=== PATIENT | female | born 1955 | race African-American/Black ===

== ENCOUNTER 2017-11-10 10:19 | Outpatient (CLI) | payer BC | END 2017-11-10 10:20 | disposition home or self-care (01) | LOC: BICMAMMO 10:19 | PROVIDERS: ATTEND Family Medicine | DX: Z12.31 Encounter for screening mammogram for malignant neoplasm of breast (principal); N63.20 Unspecified lump in the left breast, unspecified quadrant; N63.10 Unspecified lump in the right breast, unspecified quadrant | CPT/HCPCS: 77063; 77067 ==

== ENCOUNTER 2018-04-26 14:08 | Outpatient (CLI) | payer BC | END 2018-04-26 14:09 | disposition home or self-care (01) | LOC: BICMAMMO 14:08 | PROVIDERS: ATTEND Family Medicine | DX: N63.21 Unspecified lump in the left breast, upper outer quadrant (principal); R92.2 Inconclusive mammogram | CPT/HCPCS: G0279 ==

== ENCOUNTER 2020-04-01 09:57 | Day surgery (SDC) | payer BC ==
[~2020-04-01 09:57] MED LIST: Acetaminophen 500 MG TAB PO PRN; Vedolizumab 300 MG in Sodium Chloride 0.9% 250 ML 250 ML IVPB SCH
[2020-04-01] MEDS ORDERED: Sodium Chloride 0.9% 20 ML ONE (11:10)
[2020-04-01 12:00] VITALS: BP 116/73; TEMP 98.4
== END 2020-04-01 14:18 | disposition home or self-care (01) ==
LOC: ONC/OP 09:57
PROVIDERS: ATTEND Internal Medicine Gastroenterology
DX: K50.90 Crohn's disease, unspecified, without complications (principal); Z88.2 Allergy status to sulfonamides
CPT/HCPCS: 96413; J3380; J7050

== ENCOUNTER 2020-04-15 09:43 | Day surgery (SDC) | payer BC ==
[2020-04-15] MEDS ORDERED: Acetaminophen 500 MG TAB PO PRN ×2 (10:07→10:08)
[2020-04-15] MEDS ORDERED: Sodium Chloride 0.9% 20 ML ONE (10:09)
[2020-04-15] MEDS ORDERED: Vedolizumab 300 MG in Sodium Chloride 0.9% 250 ML 250 ML IVPB SCH (10:15)
[2020-04-15 11:50] VITALS: BP 120/76; TEMP 98.8
== END 2020-04-15 11:55 | disposition home or self-care (01) ==
LOC: ONC/OP 09:43
PROVIDERS: ATTEND Internal Medicine Gastroenterology
DX: K50.90 Crohn's disease, unspecified, without complications (principal); Z88.2 Allergy status to sulfonamides
CPT/HCPCS: 96413; J3380; J7050

== ENCOUNTER 2020-06-06 08:55 | Day surgery (SDC) | payer BC ==
[2020-06-06] MEDS ORDERED: Sodium Chloride 0.9% 20 ML ONE (09:00)
[2020-06-06 09:11] VITALS: BP 116/70; TEMP 98.8
== END 2020-06-06 12:27 | disposition home or self-care (01) ==
LOC: ONC/OP 08:55
PROVIDERS: ATTEND Internal Medicine Gastroenterology
DX: K50.90 Crohn's disease, unspecified, without complications (principal); Z88.2 Allergy status to sulfonamides
CPT/HCPCS: 96413

== ENCOUNTER 2020-07-31 08:45 | Day surgery (SDC) | payer BC ==
[~2020-07-31 08:45] MED LIST changes: +Sodium Chloride 0.9% 1,000 ML IV SCH
[2020-07-31] MEDS ORDERED: Sodium Chloride 0.9% 20 ML ONE (09:01)
[2020-07-31 09:16] VITALS: BP 120/67; TEMP 98.7
== END 2020-07-31 10:20 | disposition home or self-care (01) ==
LOC: ONC/OP 08:45
PROVIDERS: ATTEND Internal Medicine Gastroenterology
DX: K50.90 Crohn's disease, unspecified, without complications (principal); Z88.2 Allergy status to sulfonamides; Z91.011 Allergy to milk products
CPT/HCPCS: 96413

== ENCOUNTER 2020-09-25 12:38 | Day surgery (SDC) | payer BC ==
[2020-09-25] MEDS ORDERED: Sodium Chloride 0.9% 20 ML ONE (12:42)
[2020-09-25 13:03] VITALS: BP 129/71; TEMP 98.8
== END 2020-09-25 14:18 | disposition home or self-care (01) ==
LOC: ONC/OP 12:38
PROVIDERS: ATTEND Internal Medicine Gastroenterology
DX: K50.90 Crohn's disease, unspecified, without complications (principal); Z88.2 Allergy status to sulfonamides; Z91.011 Allergy to milk products
CPT/HCPCS: 36415; 80053; 83021; 83516; 84550; 85025; 85652; 86038; 86140; 86160; 86225; 86376; 96413

== ENCOUNTER 2020-09-26 13:01 | Outpatient (CLI) | payer BC ==
--- NOTE | 2020-09-26 14:28 | ULT ---
LEFT LOWER EXTREMITY VENOUS DUPLEX EXAM: 09/26/20 HISTORY: Left leg pain and swelling. Real time color Doppler evaluation of the left lower extremity was performed from groin to calf. This includes evaluation of the common femoral, superficial, profunda femoral, saphenous, popliteal, and posterior tibial veins. This shows patent deep venous system. There is normal compressibility and aug mentation. No evidence of DVT. IMPRESSION: No evidence of DVT of the left lower extremity. POS: [facility]
== END 2020-09-26 13:02 | disposition home or self-care (01) ==
LOC: BICULT 13:01
PROVIDERS: ATTEND Family Medicine
DX: M79.89 Other specified soft tissue disorders (principal)

== ENCOUNTER 2020-11-21 09:05 | Day surgery (SDC) | payer BC ==
[~2020-11-21 09:05] MED LIST changes: +Acetaminophen 500 MG TAB PO SCH
[2020-11-21 10:20] VITALS: BP 107/75; TEMP 98.6
== END 2020-11-21 13:52 | disposition home or self-care (01) ==
LOC: ONC/OP 09:05
PROVIDERS: ATTEND Internal Medicine Gastroenterology
DX: K50.90 Crohn's disease, unspecified, without complications (principal); Z88.2 Allergy status to sulfonamides; Z91.011 Allergy to milk products
CPT/HCPCS: 96413

== ENCOUNTER → 2021-01-27 | Day surgery (SDC) | payer BC ==
[~2021-01-27] MED LIST changes: +Sodium Chloride 0.9% 20 ML ONE
[2021-01-27 09:35] VITALS: BP 122/71; TEMP 98.6
== END ==
LOC: ONC/OP 08:16
PROVIDERS: ATTEND Internal Medicine Gastroenterology
DX: K50.90 Crohn's disease, unspecified, without complications (principal); Z88.2 Allergy status to sulfonamides; Z91.011 Allergy to milk products
CPT/HCPCS: 36415; 80053; 80061; 82306; 84443; 85025; 96413

== ENCOUNTER 2021-03-20 08:21 | Day surgery (SDC) | payer BC ==
[~2021-03-20 08:21] MED LIST changes: -Sodium Chloride 0.9% 20 ML ONE
[2021-03-20] MEDS ORDERED: Sodium Chloride 0.9% 20 ML ONE (08:56)
[2021-03-20 10:18] VITALS: BP 127/70; TEMP 98.8
== END 2021-03-20 10:19 | disposition home or self-care (01) ==
LOC: ONC/OP 08:21
PROVIDERS: ATTEND Internal Medicine Gastroenterology
DX: K50.90 Crohn's disease, unspecified, without complications (principal); Z88.2 Allergy status to sulfonamides; Z91.011 Allergy to milk products
CPT/HCPCS: 96413

== ENCOUNTER 2021-07-09 09:10 | Day surgery (SDC) | payer BC ==
[2021-07-09] MEDS ORDERED: Sodium Chloride 0.9% 20 ML ONE (09:16)
[2021-07-09 10:00] VITALS: BP 114/60; TEMP 98.5
== END 2021-07-09 11:09 | disposition home or self-care (01) ==
LOC: ONC/OP 09:10
PROVIDERS: ATTEND Internal Medicine Gastroenterology
DX: K50.90 Crohn's disease, unspecified, without complications (principal); Z88.2 Allergy status to sulfonamides; Z91.011 Allergy to milk products
CPT/HCPCS: 96413

== ENCOUNTER 2021-09-03 09:09 | Day surgery (SDC) | payer BC ==
[2021-09-03 09:31] VITALS: BP 132/76; TEMP 98.5
[2021-09-03] MEDS ORDERED: Sodium Chloride 0.9% 20 ML ONE (09:37)
== END 2021-09-03 14:48 | disposition home or self-care (01) ==
LOC: ONC/OP 09:09
PROVIDERS: ATTEND Internal Medicine Gastroenterology
DX: K50.90 Crohn's disease, unspecified, without complications (principal); Z88.2 Allergy status to sulfonamides; Z91.011 Allergy to milk products
CPT/HCPCS: 96413